=== PATIENT | male | born 1950 | race African-American/Black ===

== ENCOUNTER 2021-12-17 19:52 | Emergency (ER) | payer MEDICARE, OTHER ==
--- OUTSIDE RECORDS SUMMARY | 2021-12-17 19:55 | XMS REPORT | Continuity of Care Document ---
:1950 Author Organization [facility] Address [address] [place] [address] Care Team Providers Name Role Phone YUNIOR Attending Clinician Unavailable YUNIOR Admitting Clinician Unavailable Payers Payer Name Policy Type Policy Number Effective Date Expiration Date S ource Problems This patient has no known problems. Allergies, Adverse Reactions, Alerts This patient has no known allergies or adverse reactions. Medications This patient has no known medications. Procedures This patient has no known procedures. Encounters Start End Encounter Admission Attending Care Care Encounter Source Date/Time Date/Time Type Type Clinicians Facility Department ID 2020-03-08 2020-03-08 Outpatient MIGUEL A SALEH [address] 10:09:00 10:09:00 [id number] [facility] Program Results This patient has no known results.
[2021-12-17 20:44] LABS: Absolute Lymphocytes (CBC) 1.6 K/uL (0.7-4.9); Lymphocytes % 23.7 % (15.3-44.8); RBC Red Blood Cell Count 3.78 M/uL (4.33-5.43)
[2021-12-17 20:48] LABS: Protime INR 1.06
--- NOTE | 2021-12-17 21:09 | RAD REPORT ---
EXAM DESCRIPTION: Storm Single View12/17/2021 8:53 pm CLINICAL HISTORY: arrhythmia COMPARISON: 2016 FINDINGS: The lungs appear clear of acute infiltrate. The heart is normal size IMPRESSION: No acute abnormalities displayed
[2021-12-17 21:10] LABS: Albumin 3.3 g/dL (3.4-5.0); Bilirubin Direct 0.3 mg/dL (0-0.2); Magnesium 2.2 mg/dL (1.8-2.4); Potassium 3.8 mmol/L (3.5-5.1); Troponin High Sensitivity 16.5 pg/mL (<58.9)
--- NOTE | 2021-12-17 22:08 | EDPHYS ---
Physician Documentation [facility] Name: Modesto Bo Age: 71 yrs Sex: Male : 1950 Arrival Date: 12/17/2021 Time: 19:56 Bed 14 Private MD: ED Physician Elan Vargas HPI: 12/17 20:14 This 71 yrs old Black Male presents to ER via Ambulatory with complaints of Irregular [facility] Pulse. 20:14 This is a 71-year-old male with history of CVA, hypertension the presents emerged [facility] department with complaints of abnormal pulse which was measured while at physical therapy. Patient denies any dizziness, syncope, near syncope, chest pain, palpitations, weakness, vomiting, nausea, abdominal pain, back pain.. Historical: - Allergies: 20:09 No Known Allergies; kd3 - PMHx: 21:02 Hypertensive disorder; sm5 21:02 Cerebrovascular accident; sm5 - Immunization history:: Adult Immunizations up to date, Client reports receiving the 2nd dose of the Covid vaccine. - Social history:: Smoking status: unknown. ROS: 20:14 Constitutional: Negative for fever, chills, and weight loss, Cardiovascular: Negative jmm for chest pain, palpitations, and edema, Respiratory: Negative for shortness of breath, cough, wheezing, and pleuritic chest pain, Neuro: Negative for headache, weakness, numbness, tingling, and seizure. 20:14 All other systems are negative. Exam: 20:14 Constitutional: This is a well developed, well nourished patient who is awake, alert, jmm and in no acute distress. Head/Face: atraumatic. Eyes: EOMI, no conjunctival erythema appreciated ENT: Moist Mucus Membranes Neck: Trachea midline, Supple Chest/axilla: Normal chest wall appearance and motion. 20:14 Abdomen/GI: Non distended, soft Back: Normal ROM Skin: General appearance color normal MS/ Extremity: Moves all extremities, no obvious deformities appreciated, no edema noted to the lower extremities Neuro: Awake and alert Psych: Behavior is normal, Mood is normal, Patient is cooperative and pleasant 20:14 Cardiovascular: Rate: bradycardic, Rhythm: regular. 20:14 Respiratory: the patient does not display signs of respiratory distress, Respirations: normal, Breath sounds: are clear throughout. Vital Signs: 20:08 BP 173 / 75; Pulse 46; Resp 16; Pulse Ox 100% on R/A; sm5 21:31 BP 151 / 69; Pulse 42; Resp 20; Pulse Ox 98% on R/A; sm5 MDM: 20:35 Patient medically screened. [facility] 22:07 Data reviewed: vital signs, nurses notes. Counseling: I had a detailed discussion with [facility] the patient and/or guardian regarding: the historical points, exam findings, and any diagnostic results supporting the discharge/admit diagnosis, the need for further work-up and treatment in the hospital, to return to the emergency department if symptoms worsen or persist or if there are any questions or concerns that arise at home. 23:27 ED course: EKG reveals sinus bradycardia. No signs of heart block. Patient is [facility] asymptomatic. Blood pressure is within normal limits. I discussed the patient with Dr. Grossman who will follow with the patient in clinic. Patient otherwise given strict return precautions. Patient and family understood and agrees plan of care.. 12/17 20:14 Order name: Basic Metabolic Panel; Complete Time: 21:11 [facility] 12/17 20:14 Order name: CBC with Diff; Complete Time: 20:52 [facility] 12/17 20:14 Order name: LFT's; Complete Time: 21:11 [facility] 12/17 20:14 Order name: Magnesium; Complete Time: 21:11 [facility] 12/17 20:14 Order name: NT PRO-BNP; Complete Time: 21:11 [facility] 12/17 20:14 Order name: PT-INR; Complete Time: 20:52 [facility] 12/17 20:14 Order name: Troponin HS; Complete Time: 21:11 [facility] 12/17 20:14 Order name: XRAY Chest (1 view); Complete Time: 21:11 [facility] 12/17 20:14 Order name: EKG; Complete Time: 20:15 [facility] 12/17 20:14 Order name: Cardiac monitoring; Complete Time: 20:24 [facility] 12/17 20:14 Order name: EKG - Nurse/Tech; Complete Time: 20:24 [facility] 12/17 20:14 Order name: IV Saline Lock; Complete Time: 20:47 [facility] 12/17 20:14 Order name: Labs collected and sent; Complete Time: 20:47 [facility] 12/17 20:14 Order name: O2 Per Protocol; Complete Time: 20:24 [facility] 12/17 20:14 Order name: O2 Sat Monitoring; Complete Time: 20:24 [facility] Administered Medications: No medications were administered Disposition: 12/18 06:59 Co-signature as Attending Physician, Elan Vargas DO I was immediately available on-site ms3 in the Emergency Department for consultation in the care of the patient.. Disposition Summary: 12/17/21 22:07 Discharge Ordered Location: Home jm Condition: Stable jmm Diagnosis - Bradycardia, unspecified jmm Followup: jmm - With: Merritt Grossman MD - When: 2 - 3 days - Reason: Recheck today's complaints, Continuance of care, Re-evaluation by your physician Discharge Instructions: - Discharge Summary Sheet jm - Bradycardia, Adult jmm Forms: - Medication Reconciliation Form [facility] - Thank You Letter m - Antibiotic Education jmm - Prescription Opioid Use [facility] Signatures: Dispatcher [employer] EDMS Marvin Sullivan PA PA jmm Sims, Marcus, DO DO ms3 Sabiha Barkley, RN RN kd3 Bisi Lopez RN RN sm5
--- NOTE | 2021-12-17 22:08 | ER ---
Nurse's Notes [facility] Name: Modesto Bo Age: 71 yrs Sex: Male : 1950 Arrival Date: 12/17/2021 Time: 19:56 Bed 14 Private MD: Diagnosis: Bradycardia, unspecified Presentation: 12/17 20:08 Chief complaint: Patient states: i was at physical therapy today and my heart rate kd3 dropped to 32. i have no symptoms. Coronavirus screen: Vaccine status: Patient reports receiving the 2nd dose of the covid vaccine. Ebola Screen: No symptoms or risks identified at this time. Initial Sepsis Screen: Does the patient meet any 2 criteria? No. Patient's initial sepsis screen is negative. Does the patient have a suspected source of infection? No. Patient's initial sepsis screen is negative. Risk Assessment: Do you want to hurt yourself or someone else? Patient reports no desire to harm self or others. Onset of symptoms was December 17, 2021. 20:08 Method Of Arrival: Ambulatory kd3 20:08 Acuity: FERNANDA 3 kd3 Triage Assessment: 20:09 General: Appears in no apparent distress. Behavior is calm, cooperative. Pain: Denies kd3 pain. Cardiovascular: Patient's skin is warm and dry. Historical: - Allergies: 20:09 No Known Allergies; kd3 - PMHx: 21:02 Hypertensive disorder; sm5 21:02 Cerebrovascular accident; sm5 - Immunization history:: Adult Immunizations up to date, Client reports receiving the 2nd dose of the Covid vaccine. - Social history:: Smoking status: unknown. Screenin:10 Abuse screen: Denies threats or abuse. Denies injuries from another. Nutritional kd3 screening: No deficits noted. Tuberculosis screening: No symptoms or risk factors identified. Fall Risk None identified. Assessment: 21:03 General: Appears in no apparent distress. Behavior is cooperative. Pain: Pain does not sm5 radiate. Pain began 4 hours ago. Pain: Denies pain. Neuro: No deficits noted. Level of Consciousness is awake, alert, obeys commands, Oriented to person, place, time, situation. Cardiovascular: Capillary refill < 3 seconds Patient's skin is warm and dry. Rhythm is sinus bradycardia with unifocal PVCs. Respiratory: No deficits noted. Airway is patent Trachea midline Respiratory effort is even, unlabored. GI: No deficits noted. Abdomen is round obese. 22:00 Reassessment: No changes from previously documented assessment. Patient and/or family 5 updated on plan of care and expected duration. Pain level reassessed. Vital Signs: 20:08 BP 173 / 75; Pulse 46; Resp 16; Pulse Ox 100% on R/A; sm5 21:31 BP 151 / 69; Pulse 42; Resp 20; Pulse Ox 98% on R/A; 5 ED Course: 19:56 Patient arrived in ED. jj6 19:58 Marvin Sullivan PA is PHCP. [facility] 19:58 Elan Vargas DO is Attending Physician. [facility] 20:02 Bisi Lopez, DAYANARA is Primary Nurse. 5 20:09 Triage completed. kd3 20:09 Arm band placed on right wrist. kd3 20:10 Patient has correct armband on for positive identification. Client placed on continuous kd3 cardiac and pulse oximetry monitoring. NIBP monitoring applied. teletypesetter monitor on. Pulse ox on. 20:45 Initial lab(s) drawn, by wa, sent to lab. Inserted saline lock: 20 gauge in right jw7 forearm, using aseptic technique. Blood collected. 20:46 Warm blanket given. jw7 20:47 Basic Metabolic Panel Sent. jw7 20:47 LFT's Sent. jw7 20:47 Magnesium Sent. jw7 20:47 NT PRO-BNP Sent. jw7 20:47 PT-INR Sent. jw7 20:47 Troponin HS Sent. jw7 20:55 XRAY Chest (1 view) In Process Unspecified. EDMS 22:07 Merritt Grossman MD is Referral Physician. [facility] 22:19 No provider procedures requiring assistance completed. IV discontinued, intact, sm5 bleeding controlled, No redness/swelling at site. Pressure dressing applied. Patient maintains SpO2 saturation greater than 95% on room air. Administered Medications: No medications were administered Medication: 21:01 VIS not applicable for this client. 5 Outcome: 22:07 Discharge ordered by . [facility] 22:20 Discharged to home via wheelchair, with significant other. [facility] 22:20 Condition: stable 22:20 Discharge instructions given to patient, significant other, Instructed on discharge instructions, follow up and referral plans. Demonstrated understanding of instructions, follow-up care. 22:20 Patient left the ED. 5 Signatures: Dispatcher [employer] EDMS Marvin Sullivan PA PA jmm Jeffries, Jennifer jj6 Sabiha Barkley RN RN kd3 Bisi Lopez RN RN sm5 Eva Cr jw7 Corrections: (The following items were deleted from the chart) 21:02 21:01 BP 173 / 75; Pulse 46bpm; Resp 16bpm; Pulse Ox 100% RA; sm5 5
[2021-12-17 22:31] VITALS: BP 151/69; O2SAT 98
--- NOTE | 2021-12-19 13:23 | EKG ---
Test Date: 2021-12-17 Test Time: 20:06:11 Welt Beater: JEYSON MEASUREMENT RESULTS: Intervals: Rate: 52 DC: 144 QRSD: 90 QT: 438 QTc: 407 Adams: P: 71 DC: 144 QRS: -21 T: 15 INTERPRETIVE STATEMENTS: Sinus bradycardia with sinus arrhythmia with occasional premature ventricular complexes Otherwise normal ECG Compared to ECG 11/01/2016 20:08:40 Ventricular premature complex(es) now present ST (T wave) deviation no longer present Electronically Signed On 12-19-21 13:20:45 CDT by Burton Granados
== END 2021-12-17 22:20 | disposition home or self-care (01) ==
LOC: ER 19:52
DX: R00.1 Bradycardia, unspecified (principal); I10 Essential (primary) hypertension; Z86.73 Personal history of transient ischemic attack (TIA), and cerebral infarction without residual deficits
CPT/HCPCS: 36415; 71045; 80048; 80076; 83735; 83880; 84484; 85025; 85610; 93005; 99285